=== PATIENT | female | born 1995 | race Caucasian/White ===

== ENCOUNTER 2018-08-08 12:45 | Emergency (ER) | payer SELFPAY ==
[~2018-08-08] VITALS: Ht 177.8 cm; Wt 108.8 kg
[2018-08-08 12:51] VITALS: Ht 177.8 cm; Wt 108.8 kg
[2018-08-08] MEDS ORDERED: KETOROLAC 15 MG INJ IV STA (12:59)
[2018-08-08] MEDS ORDERED: SODIUM CHLORIDE 0.9% 1L BAG IV* STA (12:59)
[2018-08-08] MEDS ORDERED: ACETAMINOPHEN 325 MG TAB PO ONE (13:00)
--- NOTE | 2018-08-08 13:45 | ERD ---
ER Documentation Chief Complaint Chief Complaint Complains of a sore throat x 5 days HPI This is a 23-year-old female with no significant past medical history who is presenting with fever, chills, sore throat over the last 5 days. The patient reports seeing white patches on her tonsils. She endorses swollen glands. She has not had a cough. She reports pain with swallowing, but she does not endorse any drooling. Her voice is normal. Her throat is not closing. The patient has been taking Tylenol and ibuprofen at home with little relief. She does not endorse any other alleviating or exacerbating factors. The patient has had no headache or vision changes. The patient does not endorse posterior neck or back pain. The patient denies lightheadedness or dizziness. The patient has had no chest pain or trouble breathing. The patient denies nausea or vomiting. The patient denies abdominal pain. The patient denies stout es to bowel movements or urination. The patient has had no focal deficits. The patient has had no weakness or numbness or tingling to the face or extremities. ROS All systems reviewed and are negative except as per history of present illness. Medications Home Meds No Active Prescriptions or Reported Meds Allergies Allergies: Coded Allergies: No Known Allergy (Unverified , 08/08/18) PMhx/Soc Medical and Surgical Hx: pt denies Medical Hx, pt denies Surgical Hx Physical Exam Vitals Vital Signs Date Temp Pulse Resp B/P (MAP) Pulse Ox O2 O2 Flow FiO2 Time Delivery Rate 08/08/18 99.4 102 22 117/88 99 Room Air 14:30 (98) 08/08/18 109 18 134/90 100 Room Air 13:49 (105) 08/08/18 101.5 13:33 08/08/18 101.5 125 20 147/88 98 12:51 (107) Physical Exam Const: No apparent distress, well-developed, well-nourished Head: Normocephalic, Atraumatic Eyes: Normal Conjunctiva. Extraocular movements intact. Pupils equal, round and reactive to light ENT: Normal External Ears, Nose. Tonsillar erythema and exudate bilaterally with minimal enlargement. Airway is otherwise patent. Neck: Full range of motion. No meningismus. Mild anterior lymphadenopathy. Resp: Clear to auscultation bilaterally, No wheezes, rales or rhonchi Cardio: Regular rhythm. Tachycardia. No murmurs, rubs or gallops Abd: Soft, non tender, non distended. Normal bowel sounds Skin: No petechiae or rashes Back: No midline tenderness. No CVA tenderness Ext: No cyanosis, or edema Neur: Awake and alert, oriented 4. Cranial nerves intact. No facial droop. Normal strength, sensation and coordination. Psych: Normal Mood and Affect Result Diagram: 08/08/18 1311 08/08/18 1311 Results 24 hrs Laboratory Tests Test 08/08/18 13:05 08/08/18 13:11 08/08/18 13:14 08/08/18 14:17 POC Venous Lactate 1.2 mmol/L White Blood Count 9.2 10^3/ul Red Blood Count 5.56 10^6/ul Hemoglobin 10.8 g/dl Hematocrit 34.4 % Mean Corpuscular 61.9 fl Volume Mean Corpuscular 19.4 pg Hemoglobin Mean Corpuscular 31.4 g/dl Hemoglobin Concent Red Cell 15.9 % Distribution Width Platelet Count 411 10^3/UL Mean Platelet 11.2 fl Volume Immature 0.300 % Granulocytes % Neutrophils % 63.7 % Lymphocytes % 25.0 % Monocytes % 10.7 % Eosinophils % 0.1 % Basophils % 0.2 % Nucleated Red Blood 0.0 /100WBC Cells % Immature 0.030 10^3/ul Granulocytes # Neutrophils # 5.9 10^3/ul Lymphocytes # 2.3 10^3/ul Monocytes # 1.0 10^3/ul Eosinophils # 0.0 10^3/ul Basophils # 0.0 10^3/ul Nucleated Red Blood 0.0 10^3/ul Cells # Sodium Level 136 mmol/L Potassium Level 3.5 mmol/L Chloride Level 99 mmol/L Carbon Dioxide 23 mmol/L Level Anion Gap 14 Blood Urea Nitrogen 7 mg/dl Creatinine 0.66 mg/dl Est Glomerular > 60 mL/min Filtrat Rate mL/min Glucose Level 95 mg/dl Calcium Level 9.7 mg/dl Total Bilirubin 0.2 mg/dl Direct Bilirubin 0.00 mg/dl Indirect Bilirubin 0.2 mg/dl Aspartate Amino 66 IU/L Transf (AST/SGOT) Alanine 44 IU/L Aminotransferase (A LT/SGPT) Alkaline 72 IU/L Phosphatase Total Protein 9.2 g/dl Albumin 4.5 g/dl Globulin 4.70 g/dl Albumin/Globulin 0.95 Ratio Urine Color VIKTORIYA Urine Clarity SLIGHTLY CLOUDY Urine pH 5.0 Urine Specific 1.020 [place] Urine Ketones 2+ mg/dL Urine Nitrite NEGATIVE mg/dL Urine Bilirubin NEGATIVE mg/dL Urine Urobilinogen 1+ mg/dL Urine Leukocyte NEGATIVE Li/ul Esterase Urine Microscopic 2 /HPF RBC Urine Microscopic 2 /HPF WBC Urine Squamous FEW /HPF Epithelial Cells Urine Bacteria FEW /HPF Urine Mucus MANY /HPF Urine Hemoglobin 1+ mg/dL Urine Glucose NEGATIVE mg/dL Urine Total Protein 2+ mg/dl Urine NEGATIVE Test Current Medications Medications Dose Sig/Leanna Start Time Status Last (Trade) Ordered Route PRN Stop Time Admin Dose Reason Admin Sodium 2,060 ml BOLUS OVER 2 08/08/18 DC 08/08/18 Chloride HOURS STAT 12:59 08/08/18 13:19 (NS) IV* 13:02 Ketorolac 15 mg ONCE STAT 08/08/18 DC 08/08/18 Tromethamine IV 12:59 08/08/18 14:53 (Toradol) 13:02 650 mg ONCE ONCE 08/08/18 DC 08/08/18 Acetaminophen PO 13:00 08/08/18 13:33 (Tylenol 13:02 Tab) Procedures/MDM MDM The patient's presentation warrants further investigation. Previous medical records, if available, were reviewed. LABS The patient's laboratory testing was obtained and reviewed. No emergent treatment was required unless described below. CBC: No E/o systemic infection or severe anemia or thrombocytopenia. Mild an emia, nonemergent. Chemistry: No E/o severe acidosis or alkalosis or renal failure or liver disease or diabetic ketoacidosis PT/INR: No E/o significant coagulopathy Lactate: No E/o severe sepsis Urine: No E/o acute infection or hematuria Influenza: Negative Rapid strep: Negative EKG EKG read by me: Rate/Rhythm: Sinus tachycardia at 107 bpm Intervals: Normal [place]: Normal Impression: No evidence of acute ischemia. Sinus tachycardia IMAGING Imaging and Radiology interpretation reviewed. CXR FINDINGS: The heart and mediastinum are within normal limits. The lungs are clear. There is no pleural effusion or pneumothorax. IMPRESSION: No acute disease. Electronically viewed and signed by Gary Fay MD, on 08/08/2018 13:25 TREATMENT/DISPOSITION The patient presents with symptoms consistent with strep pharyngitis. The patient presented tachycardic and febrile, so a septic workup was completed. The patient's lactic acid is normal. She does not have endorgan damage. I have low suspicion for severe sepsis. The patient was given IV fluids in the emergency department. The patient's Centor criteria is 4 indicating treatment despite testing. The rapid strep test is negative, but my suspicion for strep pharyngitis is very high, and I do intend to treat with antibiotics. I do not feel the patient requires IV antibiotics or inpatient management. I do not see evidence of pneumonia. I do not suspect otitis media. I do not see evidence of a peritonsillar abscess or retropharyngeal abscess. The patient was treated with IV fluids, Tylenol and Toradol in the emergency department with improvement of her pain and her fever and her tachycardia. Upon reevaluation of the patient, symptoms have improved. No emergent diagnoses were identified. At this time, I feel that the patient stable for discharge. The patient was instructed to follow-up with a primary care physician in 1-3 days. The patient will be given strict precautions with which to return to the emergency department. Prescriptions: Amoxicillin, ibuprofen The patient's blood pressure was elevated at greater than 120/80 while in the emergency department. The patient was otherwise stable with no evidence of hypertensive urgency or emergency. The patient does not require admission for blood pressure control. I have discussed with the patient the risks of hypertension. I have instructed the patient to return to the ER for any new or worsening symptoms including chest pain, shortness of breath, headache, blurred vision, confusion, nausea, vomiting or LOC. I have advised the patient to follow up with the primary care physician for outpatient monitoring and treatment for hypertension in 1-3 days. Disclaimer: Inadvertent spelling and grammatical errors are likely due to EHR/dictation software use and do not reflect on the overall quality of patient care. Note that the electronic time recorded on this note does not necessarily reflect the actual time of the patient encounter. Departure Diagnosis: Primary Impression: Pharyngitis Pharyngitis/tonsillitis etiology: unspecified etiology Qualified Codes: J02.9 - Acute pharyngitis, unspecified Additional Impressions: Sore throat Fever Fever type: unspecified Qualified Codes: R50.9 - Fever, unspecified Tachycardia Microcytic anemia Condition: Stable Patient Instructions: Self-Care for Sore Throats, Fever Control (Adult), Anemia Additional Instructions: Thank you for for coming to [facility] for your care today. Please ask your nurse or provider if you have questions about your care today and do not leave until all your questions have been answered. Please use any medications given as directed and follow-up with your doctor (or the doctor you were referred to) in the next 1-3 days. If you do not have a primary care doctor you may follow up at the [facility] or [facility] (listed below). You may also use motrin and tylenol as needed for fever and/or pain unless instructed otherwise by your provider or nurse. Indications for more urgent follow-up have been discussed, but you may return to the Emergency Department at ANY time for any worrisome or worsening symptoms. If you have abdominal pain, please know that no test or exam you received is perfect and you should follow up within 8 hours for continued pain. If you had any imaging studies today, such as an X-Ray or CT Scan, these studies will be reviewed later by a radiologist. You will be called if there are important findings that were not identified today, so make sure the contact information you provided at registration is correct. If you received any narcotic pain control medicine today, such as Vicodin, Morphine or Dilaudid, your coordination and judgment may be affected for a number of hours. Please do not drive or operate heavy machinery, and you may want someone to assist you at home. If you were given a prescription for narcotic medication, be aware that it is very addictive- use sparingly and only if necessary. PLEASE SEEK FURTHER EVALUATION AND MANAGEMENT AT YOUR DOCTORS OFFICE WITHIN THE NEXT 1-3 DAYS. IT IS YOUR RESPONSIBILITY TO MAKE AN APPOINTMENT FOR FOLOW-UP CARE. IF YOU HAVE A PRIMARY DOCTOR, PLEASE CALL THEIR OFFICE TO SCHEDULE AN APPOINTMENT FOR FOLLOW UP. IF YOU DO NOT HAVE A PRIMARY DOCTOR YOU CAN CALL OUR PHYSICIAN REFERRAL HOTLINE AT IF YOU CAN NOT AFFORD TO SEE A PHYSICIAN YOU CAN CHOSE FROM THE FOLLOWING [facility] CLINICS: [facility] [address] [facility] [address] [facility] [facility] [address] [facility] [address] [facility] [address] [facility]. [facility]. [address] JACQUELYN DE LA O MD Aug 08, 2018 13:43
[2018-08-08 14:30] VITALS: BP 117/88; PULSE 102; RESP 22
[2018-08-08] MEDS ORDERED: AMOX500C2 PO (15:00)
== END 2018-08-08 17:39 | disposition home or self-care (01) ==
LOC: E/R 12:45
DX: J02.9 Acute pharyngitis, unspecified (principal); R00.0 Tachycardia, unspecified; D50.9 Iron deficiency anemia, unspecified
CPT/HCPCS: 71045; 80053; 81001; 83605; 84703; 85025; 87040; 87086; 87400; 87880; 93005; J1885; J7030; 36415; 96374